=== PATIENT | female | born 1955 | race Caucasian/White ===

== ENCOUNTER → 2017-12-24 | Day surgery (SDC) | payer OTHER ==
[~2017-12-24] MED LIST: ATROPINE SULFATE 1 MG/10 ML SYR IVP ONE; NS 1,000 ML IV ONE
--- NOTE | 2017-12-24 09:55 | CPEKG ---
Heart Rate: 58 RR Interval: 1034 P-R Interval: 184 QRSD Interval: 86 QT Interval: 448 QTC Interval: 441 P [place]: 53 QRS Andrew: 13 T Wave [place]: 21 EKG Severity - NORMAL ECG - EKG Impression: SINUS RHYTHM Electronically Signed By: Farooq Aslhey 24-Dec-2017 13:24:11
== END | disposition home or self-care (01) ==
LOC: FCATH 09:22
PROVIDERS: ATTEND Internal Medicine Interventional Cardiology
DX: R53.83 Other fatigue (principal); I34.0 Nonrheumatic mitral (valve) insufficiency; I48.91 Unspecified atrial fibrillation; R42 Dizziness and giddiness; R06.02 Shortness of breath; Z53.09 Procedure and treatment not carried out because of other contraindication

== ENCOUNTER 2018-02-07 10:00 | Inpatient (IN) | payer OTHER ==
[2018-02-07] MEDS ORDERED: DIAZEPAM 5 MG TAB PO ONE (10:04)
[2018-02-07] MEDS ORDERED: FAMOTIDINE 20 MG TAB PO ONE (10:04)
[2018-02-07] MEDS ORDERED: ASPIRIN EC 325 MG TAB PO ONE (10:04)
[2018-02-07] MEDS ORDERED: diphenhydrAMINE 25 MG CAP PO ONE ×2 (10:04→10:35)
[2018-02-07] MEDS ORDERED: NS 1,000 ML IV ONE (10:04)
--- NOTE | 2018-02-07 10:23 | CPEKG ---
Heart Rate: 57 RR Interval: 1053 P-R Interval: 176 QRSD Interval: 82 QT Interval: 448 QTC Interval: 437 P [place]: 56 QRS [place]: 21 T Wave [place]: 30 EKG Severity - NORMAL ECG - EKG Impression: SINUS RHYTHM Electronically Signed By: Shane Mendez 14-Feb-2018 21:56:25
[2018-02-07] MEDS ORDERED: FAMOTIDINE 20 MG TAB ONE (10:36)
[2018-02-07] MEDS ORDERED: DIAZEPAM 5 MG TAB ONE (10:36)
[2018-02-07 10:41] LABS: PLATELET COUNT 175 10^3/uL (150-400)
[2018-02-07 10:49] LABS: INR 0.99 (0.83-1.16); PROTIME(PATIENT) 13.3 SEC (12.0-15.0)
[2018-02-07] MEDS ORDERED: LIDOCAINE 1% 300 MG/30 ML SDV ONE (11:32)
[2018-02-07] MEDS ORDERED: fentaNYL 100 MCG/2 ML INJ ONE (11:32)
--- NOTE | 2018-02-07 11:32 | PDHPUP ---
History & Physical Update H&P update statement: This history and physical update is based on an assessment of the patient which was completed after admission or registration (within 24 hours), but prior to the surgery/procedure. H&P update: H&P reviewed & patient examined, no change in patient's condition since H&P completed
--- NOTE | 2018-02-07 11:32 | PDPROPOC ---
Sedation Plan of Care Sedation Plan of Care: vital signs stable, mental status noted, patient educated of risks, benefits, alternatives, patient can tolerate sedation ASA Classification: ASA 1 Planned drugs: fentanyl, midazolam Mallampati Score: Class 1 Mallampati Reference Image: Patient passed 3-3-2 rule?: Yes
[2018-02-07] MEDS ORDERED: MIDAZOLAM 2 MG/2 ML VIAL ONE (11:33)
[2018-02-07] MEDS ORDERED: IOPAMIDOL (ISOVUE 370) 100 ML BTL IV ONE (11:33)
[2018-02-07] MEDS ORDERED: HEPARIN 10,000 UNIT/10 ML MDV (1,000 UNIT/ML) ONE (11:33)
[2018-02-07] MEDS ORDERED: VERAPAMIL 5 MG/2 ML VIAL ONE (11:33)
--- NOTE | 2018-02-07 12:55 | PDDXCAT ---
Diagnostic Cath Note - . Date: 02/07/18 Digital Media Designer: Josef Indication: other (Severe mitral regurgitation. Preop for planned mitral valve repair.) - Procedure Access: right wrist - Materials Left Heart Cath size: 4F Left Heart Cath materials: JL3.5, JR4.0, pigtail - Findings-Left Heart Catheterization LM: Angiographically normal. Appropriate bifurcation into the left anterior descending and circumflex. LAD: Angiographically normal. Transapical vessel. 4 small diagonal branches. LCX: Angiographically normal. Non dominant. 3 obtuse marginal branches. RCA: Angiographically normal. Dominant. The PDA and posterolateral branches are noted. EDP: 7 mmHg. LVEF: 60-65%. Wall motion: Normal. Complications: None. Estimated blood loss: <50ml Closure method: TR Band Assessment: Angiographically normal epicardial coronary arteries. History of severe mitral regurgitation with plans for mitral valve repair surgery. Plan: Mitral valve repair.
--- NOTE | 2018-02-07 15:51 | PDMN ---
Medical Necessity Medical necessity: MCG: S290 Cardiac Valve Replacement or Repair, 5 days. Severe mitral regurg, surgery pending for tomorrow, admitted for pre-op prep.
[2018-02-07] MEDS ORDERED: hydrALAZINE 20 MG/ML VIAL IVP PRN (18:24)
[2018-02-07] MEDS ORDERED: CHLORHEXIDINE GLUC HIBICLENS 118 ML BTL TP SCH (21:00)
[2018-02-07] MEDS: SENNOSIDES/DOCUSATE SODIUM TAB PO SCH (21:05)
[2018-02-07] MEDS: LISINOPRIL 40 MG TAB PO SCH (21:06)
[2018-02-07] MEDS: LABETALOL HCL 200 MG TAB PO SCH (21:06)
[2018-02-07] MEDS: MUPIROCIN 2% 22 GM OINT NS SCH (22:57)
[2018-02-08] MEDS ORDERED: MANNITOL 25% 12.5 GM/50 ML VIAL IVP ONE (06:00)
[2018-02-08] MEDS ORDERED: CITRATE DEXTROSE SOLN 500 ML BAG MISC ONE (06:00)
[2018-02-08] MEDS ORDERED: NOREPINEPHRINE BITARTRATE 16 MG in NS 250 ML IV ONE (06:00)
[2018-02-08] MEDS ORDERED: INSULIN REGULAR HUMAN 100 UNIT in NS 100 ML IV ONE (06:00)
[2018-02-08] MEDS ORDERED: AMINOCAPROIC ACID 5 GM/20 ML VIAL IV ONE (06:00)
[2018-02-08] MEDS ORDERED: PHENYLEPHRINE HCL 50 MG in NS 250 ML IV ONE (06:00)
[2018-02-08] MEDS ORDERED: niCARdipine/NACL 200 ML IV ONE (06:00)
[2018-02-08] MEDS ORDERED: SODIUM BICARBONATE 20 MEQ, LIDOCAINE 1% 10 ML in NORMOSOL-R 1,000 ML MISC ONE (06:00)
[2018-02-08] MEDS ORDERED: ceFAZolin 2 GM/DEXTROSE 100 ML IV ONE (06:00)
[2018-02-08] MEDS ORDERED: LR 1,000 ML IV ONE (06:09)
[2018-02-08] MEDS ORDERED: NA BICARBONATE 50 MEQ/50 ML VIAL ONE (06:35)
[2018-02-08] MEDS ORDERED: CALCIUM CHLORIDE 1 GM/10 ML INJ ONE ×2 (06:35→06:37)
[2018-02-08] MEDS ORDERED: MILRINONE/DEXTROSE/100 ML BAG IV ONE (06:35)
[2018-02-08] MEDS ORDERED: PROTAMINE SULFATE 50 MG/5 ML VIAL IVP ONE (06:35)
[2018-02-08] MEDS ORDERED: niCARdipine/NACL/200 ML BAG IV ONE (06:36)
[2018-02-08] MEDS ORDERED: ceFAZolin 1 GM VIAL ONE (06:36)
[2018-02-08] MEDS ORDERED: ADENOSINE 6 MG/2 ML VIAL ONE (06:36)
[2018-02-08] MEDS ORDERED: AMIODARONE HCL 150 MG/3 ML VIAL ONE ×2 (06:36→06:38)
[2018-02-08] MEDS ORDERED: DOPamine/DEXTROSE 400 MG/250 ML BAG IV ONE (06:36)
[2018-02-08] MEDS ORDERED: HEPARIN 10,000 UNIT/10 ML MDV (1,000 UNIT/ML) ONE ×2 (06:36→06:38)
[2018-02-08] MEDS ORDERED: NITROGLYCERIN/D5W 50 MG/250 ML BOTTLE IV ONE (06:37)
[2018-02-08] MEDS ORDERED: ALBUMIN 5% 250 ML BOTTLE IV ONE ×2 (06:37→11:24)
[2018-02-08] MEDS ORDERED: MAGNESIUM SULFATE 1 GM/2 ML VIAL ONE (06:38)
[2018-02-08] MEDS ORDERED: CITRATE DEXTROSE SOLN 500 ML BAG ONE (06:38)
[2018-02-08] MEDS ORDERED: LIDOCAINE 2% 100 MG/5 ML SYR ONE ×2 (06:38→07:30)
[2018-02-08] MEDS ORDERED: methylPREDNISolone SOD SUCC 1 GM/8 ML VIAL ONE (06:39)
[2018-02-08] MEDS: MUPIROCIN 2% 22 GM OINT NS SCH ×2 (06:45→22:00)
--- NOTE | 2018-02-08 06:49 | PDHPUP ---
History & Physical Update H&P update statement: This history and physical update is based on an assessment of the patient which was completed after admission or registration (within 24 hours), but prior to the surgery/procedure. H&P update: H&P reviewed & patient examined, changes noted (Preop imaging neg for obstructive CAD, hemodynamically sig carotid stenosis, or sig dilatation of asc aorta.)
[2018-02-08] MEDS ORDERED: MIDAZOLAM 2 MG/2 ML VIAL IVP ONE (06:55)
--- NOTE | 2018-02-08 06:55 | PDANEPAE ---
ANE History of Present Illness severe MR, GONZALO and PAF ANE Past Medical History - Cardiovascular History Hx Hypertension: Yes Hx Arrhythmias: Yes Hx Chest Pain: No Hx Coronary Artery / Peripheral Vascular Disease: No Hx CHF / Valvular Disease: Yes Hx Palpitations: No Cardiovascular History Comment: severe HTN has been diffcult to control - Pulmonary History Hx COPD: No Hx Asthma/Reactive Airway Disease: No Hx Recent Upper Respiratory Infection: No Hx Oxygen in Use at Home: No Hx Sleep Apnea: Yes Sleep Apnea Screening Result - Last Documented: Positive - Neurologic History Hx Cerebrovascular Accident: No Hx Seizures: No Hx Dementia: No - Endocrine History Hx Diabetes: No - Renal History Hx Renal Disorders: No - Liver History Hx Hepatic Disorders: No - Neurological & Psychiatric Hx Hx Neurological and Psychiatric Disorders: Yes Neurological / Psychiatric History Comment: lower back injury pain to left leg and foot - Cancer History Hx Cancer: No - Congenital Disorder History Hx Congenital Disorders: Yes Congenital History Comment: HTN,stroke - GI History Hx Gastrointestinal Disorders: No - Other Health History Other Health History: none - Chronic Pain History Chronic Pain: Yes (lower back) - Surgical History Prior Surgeries: left patela repair ANE Review of Systems Review of Systems: - Exercise capacity METS (RN): 4 METS ANE Patient History - Allergies Allergies/Adverse Reactions: No Known Allergies Allergy (Verified 02/01/18 11:12) - Home Medications Home medications: home medication list seen and reviewed Home Medications: ALPRAZolam [Xanax 0.25 MG (*)] 0.25 mg PO DAILY PRN 02/01/18 [Last Taken ] Apixaban [Eliquis] 5 mg PO BID 02/01/18 [Last Taken 02/02/18] Hydrochlorothiazide [HCTZ (*)] 12.5 mg PO DAILY 02/01/18 [Last Taken 02/06/18] Labetalol HCl [Trandate 200 mg (*)] 400 mg PO BID 02/01/18 [Last Taken 02/07/18] Lisinopril [Zestril 40 mg (*)] 40 mg PO BID 02/01/18 [Last Taken 02/06/18] Herbals/Supplements -Info Only 1 ea PO DAILY 02/04/18 [Last Taken 02/06/18] Ibuprofen [Motrin (*)] 200 mg PO DAILY PRN 02/04/18 [Last Taken 02/05/18] Labetalol HCl [Trandate 200 mg (*)] 200 mg PO DAILY@12 02/04/18 [Last Taken 11/21] Magnesium Oxide [Magnesium Oxide 400 mg (*)] 400 mg PO DAILY 02/04/18 [Last Taken 02/06/18] Aspirin 325 mg (*) 02/07/18 [Last Taken 02/07/18] - NPO status NPO Since - Liquids (Date): 02/08/18 NPO Since - Liquids (Time): 00:00 NPO Since - Solids (Date): 02/08/18 NPO Since - Solids (Time): 00:00 - Smoking Hx Smoking Status: Never smoked - Family Anes Hx Family Hx Anesthesia Complications: none ANE Labs/Vital Signs - Labs Result Diagrams: 02/07/18 10:20 02/08/18 03:38 - Vital Signs Blood Pressure: 163/84 Heart Rate: 58 Respiratory Rate: 14 O2 Sat (%): 98 Height: 168 cm Weight: 76.2 kg ANE Physical Exam - Airway Mallampati Score: Class 2 Mouth exam: normal dental/mouth exam (states front 2 top teeth are "slightly thinner") - Pulmonary Pulmonary: no respiratory distress - Cardiovascular Cardiovascular: regular rate and rhythym - ASA Status ASA Status: III ANE Anesthesia Plan Anesthesia Plan: general endotracheal anesthesia Lines/Monitors: arterial line, central line, KAYLA
[2018-02-08] MEDS ORDERED: DEXMEDETOMIDINE HCL 400 MCG in NS 100 ML IV SCH (07:00)
[2018-02-08] MEDS ORDERED: REMIFENTANIL HCL 1 MG VIAL ONE (07:29)
[2018-02-08] MEDS ORDERED: fentaNYL 250 MCG/5 ML INJ ONE (07:29)
[2018-02-08] MEDS ORDERED: MIDAZOLAM 2 MG/2 ML VIAL ONE (07:29)
[2018-02-08] MEDS ORDERED: ONDANSETRON 4 MG/2 ML VIAL ONE (07:30)
[2018-02-08] MEDS ORDERED: PROPOFOL/EMULSION 500 MG/50 ML BOTTLE IV ONE (07:30)
[2018-02-08] MEDS ORDERED: ePHEDrine SULFATE 25 MG/5 ML SYR ONE (07:30)
[2018-02-08] MEDS ORDERED: PHENYLEPHRINE HCL 100 MCG/ML SYR ONE (07:30)
[2018-02-08] MEDS ORDERED: DEXAMETHASONE 4 MG/ML VIAL ONE ×2 (07:30)
[2018-02-08] MEDS ORDERED: ROCURONIUM 100 MG/10 ML VIAL ONE (07:30)
[2018-02-08] MEDS ORDERED: SUGAMMADEX SODIUM 200 MG/2 ML VIAL IVP ONE (11:52)
[2018-02-08] MEDS ORDERED: POTASSIUM Cl (KCl) 50 ML IV PRN (12:07)
[2018-02-08] MEDS ORDERED: ACETAMINOPHEN 650 MG SUPP PR PRN (12:07)
[2018-02-08] MEDS ORDERED: PANTOPRAZOLE SODIUM 40 MG VIAL IVP ONE (12:07)
[2018-02-08] MEDS ORDERED: ONDANSETRON DISINTEGRATING 4 MG TAB PO PRN (12:07)
[2018-02-08] MEDS ORDERED: BISACODYL 10 MG SUPP PR PRN (12:07)
[2018-02-08] MEDS ORDERED: MAGNESIUM HYDROXIDE 30 ML UDCUP PO PRN (12:07)
[2018-02-08] MEDS ORDERED: D50W 25 GM/50 ML SYR IVP PRN (12:07)
[2018-02-08] MEDS ORDERED: MEPERIDINE 25 MG/0.5 ML AMP IVP PRN (12:07)
[2018-02-08] MEDS ORDERED: SODIUM CL NASAL 45 ML BTL EACHNARE PRN (12:07)
[2018-02-08] MEDS ORDERED: LACTULOSE 20 GM/30 ML UDCUP PO PRN (12:07)
[2018-02-08] MEDS ORDERED: CEPACOL LOZENGE PO PRN (12:07)
[2018-02-08] MEDS ORDERED: niCARdipine/NACL 200 ML IV SCH (12:30)
[2018-02-08] MEDS ORDERED: INSULIN REGULAR HUMAN 100 UNIT in NS 100 ML IV SCH (12:30)
[2018-02-08] MEDS: KETOROLAC 15 MG/1 ML SDV IVP SCH ×2 (12:52→17:42)
--- NOTE | 2018-02-08 12:59 | ASMTCMCOM ---
CM Note CM Note Notes: Patient is POD #0 septal myectomy, Cannon Maze 4 and MVR. She arrived to the ICU in stable condition. Patient lives independently with her . PT/OT have been ordered. Case Managementw will follow for discharge planning. Date Signed: 02/08/2018 12:58 PM Electronically Signed By:Edie Richardson RN
[2018-02-08] MEDS: LABETALOL HCL 200 MG TAB PO SCH (13:23)
[2018-02-08] MEDS: LISINOPRIL 40 MG TAB PO SCH (13:24)
[2018-02-08] MEDS: SENNOSIDES/DOCUSATE SODIUM TAB PO SCH (13:25)
[2018-02-08] MEDS: NS 1,000 ML IV SCH (13:32)
[2018-02-08] MEDS: HEPARIN 5,000 UNIT/0.5 ML INJ SC SCH ×3 (13:37→20:19)
--- NOTE | 2018-02-08 13:38 | CPEKG ---
Heart Rate: 65 RR Interval: 923 P-R Interval: 180 QRSD Interval: 142 QT Interval: 484 QTC Interval: 504 P [place]: 97 QRS [place]: -31 T Wave [place]: 83 EKG Severity - ABNORMAL ECG - EKG Impression: SINUS RHYTHM EKG Impression: LEFT BUNDLE BRANCH BLOCK Electronically Signed By: Shane Mendez 14-Feb-2018 21:56:12
--- NOTE | 2018-02-08 13:51 | GOP ---
[f rep st] OPERATIVE REPORT DATE OF OPERATION: 02/08/2018 SURGEON: Shane Ruelas DO TRENCH DIGGER HELPER: Ekaterina Ng ANESTHESIA: Jose Mcnally PREOPERATIVE DIAGNOSIS: 1. Severe mitral insufficiency with fibroelastic deficiency. 2. Moderate aortic enlargement. 3. Septal hypertrophy with chordal systolic anterior motion. 4. Persistent atrial fibrillation. POSTOPERATIVE DIAGNOSIS: 1. Severe mitral insufficiency with fibroelastic deficiency. 2. Moderate aortic enlargement. 3. Septal hypertrophy with chordal systolic anterior motion. 4. Persistent atrial fibrillation. PROCEDURE PERFORMED: 1. Mitral valve replacement with chordal sparing utilizing a 27 Inspiris aortic valve placed in the mitral position. 2. Aortoplasty with reduction by 1.5 cm to 2.8 cm aorta. 3. Cannon Maze IV with testing utilizing radiofrequency and cryoablation. 4. Atrial clip of the left atrial appendage. 5. Septal myectomy, extended, with removal of posterolateral papillary muscle. FINDINGS: The patient presented with symptomatic mitral regurgitation and outflow tract obstruction. She was noted to have severe concentric LVH due to longstanding uncontrolled hypertension. Her pre operative CT revealed a 4 cm ascending aorta. She had a normal trileaflet aortic valve. Echo reveal ed a mid septal hypertroph with some chordal JOHN. She also had what appeared to be a fibroelastic va lve with rupture of the chords to P2 with severe mitral insufficiency. Coronaries were normal. DESCRIPTION OF PROCEDURE: She was consented for surgery. Brought to the operating room, intubated. Monitoring lines were placed. Transesophageal echo confirmed preoperative findings. It should be n oted she had a markedly thickened left ventricle with concentric LVH, but evidence of HOCM as well an d chordal JOHN. Initial testing for entrance and exit block confirmed no evidence of block on both si anne-marie. We then arrested the heart, encircled the right pulmonary veins, and performed multiple ablatio ns with 3 overlapping lines with less than 5 seconds at the completion of each ablation. We then per formed the same on the left pulmonary veins. We then excised the tip of the left atrial appendage wh ich was free of thrombus and placed a radiofrequency clamp across the previous antrum lesion from the tip of the left atrial appendage across the Coumadin ridge. Multiple ablations were performed until less than 5 seconds. We then placed a 35 mm atrial clip across the base of the appendage then marke d the coronary sinus at the terminus of the circumflex and right vessels. I then performed an aortot tracy in a vertical fashion rather than transverse because of her moderately enlarged aorta. She did n ot meet criteria for replacement, particularly in the face of a trileaflet valve. The aorta was rela tively normal in thickness and texture, but I felt it important to at least reduce the size of it. W e did a long aortotomy, exposed the bulging myocardial septum and did a trapezoid resection in the pr oximal portion, extending it to an extended myectomy to the base of the papillary muscle and the whol e wall of the septum. Close to 1000 g of tissue was removed. It was subsequently irrigated, and any shaggy material was debrided. This was performed with 11-blade, scissors, and a rongeur. We then c losed the aortotomy, reducing the size approximately 1.5 cm. It then measured about 28 mm at complet ion with a horizontal mattress and then a continuous running suture. I then proceeded with exposing the left atrium through the right superior pulmonary vein. Atriotomy was performed, extending it jeremi ost all the way to the left pulmonary vein and both inferiorly and superiorly on the roof and floor l esions, markedly transecting the atrium for the majority of the way. We then did radiofrequency comp letion of the floor and roof lesions with the short 1 cm that was left until they were less than 5 se conds. We then performed an isthmus lesion utilizing radiofrequency for 2 minutes and overlapped it on the coronary sinus lesion which was done for 3 minutes with cryoablation. I then closed the atriu m with a continuous running 4-0 Prolene suture partially and then placed a retractor and exposed the mitral valve. It was a very thin-walled friable vessel. There was obvious chordal rupture to a very small P2. I began to do chordal replacement with a 5-0 Meredith-Michael; however, gentle retraction on the anterior leaflet tore chordae to that as well. They were very thin, friable and somewhat sclerotic, and for that reason I did not think complex reconstruction of this very small valve would lead to a g ood long-term result. There was very little tissue for coaptation, and for that reason I detached th e anterior leaflet, I resected part of the posterior papillary muscle, leaving the chordae intact, an d detaching the anterior leaflet and taking it down to 3 and 9 o'clock and incorporating it into a 27 mm Inspiris aortic valve with thoughts that this had better tissue preparation than available with m itral valve and that it would also afford future balloon valvuloplasty with a [id number] placemen t. This was secured without difficulty with horizontal mattress sutures. The left atrium was then c ompletely closed. The patient was placed in Trendelenburg. The LV apex was de-aired. We then remov ed the cross-clamp with the aortic vent on and in Trendelenburg. We then performed the right-sided l esions utilizing the vertical atriotomy. The superior and inferior vena cava lines as well as the fr ee wall lesion were performed with radiofrequency to less than 5 seconds, and then we did a cryoablat ion at 2 o'clock across the tricuspid isthmus into the right ventricle with blood flow in the right c oronary artery. Atriotomy was closed. We then performed testing on both sides with complete evidenc e of block, both entrance and exit on both sides. The patient was then de-aired, weaned from bypass. The valve appeared to function perfectly. There was no aortic insufficiency. The patient was in s inus rhythm, and there was evidence of marked septal reduction with no evidence of outflow tract obst ruction. Heparin was reversed with protamine. The cannula was then removed and oversewn. 2 ventric ular pacing wires, 2 mediastinal drains were placed. The thymic fat and pericardium were closed. Th e chest was closed in standard fashion. The patient was returned to ICU in stable condition. /[id number]/MODL
[2018-02-08] MEDS ORDERED: NOREPINEPHRINE BITARTRATE 16 MG in NS 250 ML IV SCH (14:45)
[2018-02-08] MEDS ORDERED: ALBUMIN 5% 250 ML IV ONE (15:00)
[2018-02-08] MEDS: ceFAZolin 2 GM/DEXTROSE 100 ML IV SCH ×2 (15:24→21:10)
[2018-02-08] MEDS: ALBUMIN 5% 250 ML IV PRN ×2 (17:16→21:07)
--- NOTE | 2018-02-08 18:12 | POSTANESTH ---
Post Anesthetic Evaluation Cardiovascular Status: Normal, Stable (levophed at 1, very stable), Tx Hyper/ Hypo-tension Respiratory Status: Normal, Stable, Tx Decrease in SpO2 (O2 at 2L by NC) Level of Consciousness/Mental Status: Can Participate in Eval, Mildly Sleepy, Arousable Pain Control: Adequate, Prn Tx Ordered Nausea/Vomiting Control: Adequate, Prn Tx Ordered Complications Possibly Related to Anesthesia: None Noted
[2018-02-08] MEDS: ONDANSETRON 4 MG/2 ML VIAL IVP PRN (21:10)
[2018-02-08] MEDS: METOCLOPRAMIDE 10 MG/2 ML VIAL IVP PRN (21:10)
[2018-02-08] MEDS: fentaNYL 100 MCG/2 ML INJ IVP PRN (21:10)
[2018-02-09] MEDS: KETOROLAC 15 MG/1 ML SDV IVP SCH ×4 (00:13→17:58)
[2018-02-09] MEDS: HYDROCODONE/APAP 5/325 TAB PO PRN ×3 (04:50→20:07)
[2018-02-09] MEDS: fentaNYL 100 MCG/2 ML INJ IVP PRN ×2 (04:50→11:44)
[2018-02-09] MEDS: ceFAZolin 2 GM/DEXTROSE 100 ML IV SCH ×3 (05:04→22:17)
[2018-02-09 06:15] LABS: PLATELET COUNT 68 10^3/uL (150-400)
[2018-02-09] MEDS: HEPARIN 5,000 UNIT/0.5 ML INJ SC SCH ×4 (06:16→21:26)
[2018-02-09] MEDS ORDERED: ALBUMIN 5% 250 ML BOTTLE IV ONE ×2 (06:36→08:30)
--- NOTE | 2018-02-09 07:11 | SOAPPROG ---
IBAN Progress Note Assessment/Plan: POD #1: Mitral valve replacement with #27 Mary Noa aortic valve, reduction aortoplasty, Cannon-Maze IV, extended septal myectomy Severe MR s/p mitral valve replacement - Coumadin with INR goal 2-3 for AC as per Cannon-Maze IV as well as adjunctive baby ASA Ascending aortic aneurysm s/p reduction aortoplasty - Stable Long-standing paroxysmal atrial fibrillation s/p Cannon-Maze IV - Post-op accelerated JR vs SR - Coumadin for AC as per protocol HOCM with JOHN s/p extended septal myectomy - Stable Acute blood loss anemia - No transfusions needed Subjective: Denies pain/SOB. Objective: Vital Signs Temp Pulse Resp BP Pulse Ox 36.7 C 76 14 110/54 L 92 02/09/18 06:00 02/09/18 06:00 02/09/18 06:00 02/09/18 06:00 02/09/18 06:00 Laboratory Results 02/09/18 04:48 02/09/18 04:48 02/08/18 02/09/18 02/10/18 05:59 05:59 05:59 Intake Total 250 3775.7 Output Total 1465 Balance 250 2310.7 PT 13.3 SEC (12.0-15.0) 02/07/18 10:20 INR 0.99 (0.83-1.16) 02/07/18 10:20 Physical Exam - Physical Exam General Appearance: WD/WN, alert, no apparent distress EENT: No scleral icterus (R), No scleral icterus (L) Neck: normal inspection Respiratory: No respiratory distress Cardiac/Chest: regular rate, rhythm, other (?accelerated JR) Abdomen: non-tender, soft, No distended Skin: normal color, warm/dry Extremities: No pedal edema Neuro/Psych: no motor/sensory deficits, alert, normal mood/affect, oriented x 3 ICD10 Worksheet Patient Problems: Problems Problem Status Onset Acute blood loss anemia Acute S/P Maze operation for atrial fibrillation Acute ~02/08/18 S/P aorta repair Acute ~02/08/18 S/P mitral valve replacement with bioprosthetic valve Acute ~02/08/18 S/P ventricular septal myectomy Acute ~02/08/18 Ascending aorta enlargement Chronic Asymmetric septal hypertrophy Chronic Hypertensive cardiomyopathy Chronic PAF (paroxysmal atrial fibrillation) Chronic Severe mitral regurgitation Chronic
[2018-02-09] MEDS ORDERED: ALBUMIN 5% 250 ML IV ONE (09:00)
[2018-02-09] MEDS: MUPIROCIN 2% 22 GM OINT NS SCH ×2 (09:00→22:00)
[2018-02-09] MEDS: ONDANSETRON 4 MG/2 ML VIAL IVP PRN (09:11)
[2018-02-09] MEDS ORDERED: CALCIUM CHLORIDE 1 GM/10 ML INJ IVP ONE (10:15)
[2018-02-09] MEDS: METOCLOPRAMIDE 10 MG/2 ML VIAL IVP PRN (10:23)
[2018-02-09] MEDS ORDERED: FUROSEMIDE 20 MG/2 ML VIAL IVP ONE (11:00)
[2018-02-09] MEDS ORDERED: NA BICARBONATE 50 MEQ/50 ML VIAL ONE (11:09)
[2018-02-09] MEDS ORDERED: NA BICARBONATE 50 MEQ/50 ML VIAL IV ONE ×2 (11:45→14:00)
[2018-02-09] MEDS: NS 1,000 ML IV SCH (12:18)
[2018-02-09] MEDS: ASPIRIN 81 MG CHEWABLE TAB PO SCH (13:35)
[2018-02-09] MEDS: PANTOPRAZOLE SODIUM 40 MG TAB PO SCH (13:35)
--- NOTE | 2018-02-09 13:47 | GCON ---
[f rep st] CONSULTATION CRITICAL CARE CONSULT DATE OF CONSULTATION: 02/09/2018 HISTORY OF PRESENT ILLNESS: This patient is a 62-year-old female with a history of severe mitral reg urgitation and atrial fibrillation as well as hypertrophic obstructive cardiomyopathy. She was havin g symptoms of dizziness and was evaluated by Dr. Ruelas, and underwent a mitral valve repair, aortopla sty, and Cannon maze procedure with myectomy yesterday, without complication. She was extubated and bro ught to the intensive care unit with chest tubes in place, backup pacer in place, with mild hypotensi on requiring very low-dose Levophed. She did well overnight and then this morning had 2 episodes of very brief hypotension. The 1st episode occurred while she was dangling at the side of the bed. Thi s resolved fairly quickly without intervention. A 2nd episode occurred while she was lying in bed wi thout a precipitating event. I was emergently called to the room, where her blood pressure was in th e 50s. She was getting a blood transfusion at the time. Nurses were applying pressure to those bags . Symptomatically, the patient said she felt lightheaded and dizzy. She got an injection of calcium chloride and felt that there was a burning sensation throughout her body. At that time, she was in Trendelenburg position. She complained of nausea and was near emesis until I sat her up, which relie margi that symptom. She was on Levophed at the time; the Levophed was increased to as high as 15 mcg/k g per minute, and this worked quite well, and within about 10 minutes all her hemodynamics returned t o normal. The backup pacer was turned on, also, during this time, but was not adequate enough to madeline ntain an adequate blood pressure. She did have some chest pain, but this seemed to be better than ye day and was incisional in nature. She had only transient shortness of breath but no cough and no hemoptysis. There was no excess output from her chest tubes and the whole event resolved within abo ut 10 or 15 minutes. REVIEW OF SYSTEMS: Otherwise negative. PAST MEDICAL HISTORY: Includes: 1. Atrial fibrillation. 2. Hypertension. 3. Mitral regurgitation. 4. Sleep apnea. 5. Pulmonary hypertension. 6. Hypertrophic obstructive cardiomyopathy. PAST SURGICAL HISTORY: None. SOCIAL HISTORY: She is a nonsmoker. No alcohol or IV drug use. FAMILY HISTORY: Noncontributory. MEDICATIONS: At this time include Tylenol, [place], Xanax, aspirin, Dulcolax, Ancef, fentanyl, heparin , insulin, Toradol, Trandate, Zestril, Milk of Magnesia, Reglan, morphine, Levophed, Zofran, Protonix , MiraLAX, Senokot, normal saline. PHYSICAL EXAMINATION: GENERAL: At the time of my evaluation when her blood pressure was quite low, she was awake, but somewhat somnolent and did answer questions appropriately. She was non diaphoreti c. HEENT: Pupils equally round and reactive to light, nonicteric and not injected. Mucous membrane s are moist, without erythema or exudate. NECK: Supple without adenopathy or jugular vein distentio n. LUNGS: Breath sounds were diminished but clear to auscultation bilaterally without wheezes, rubs , or rales. HEART: Regular rate and rhythm without obvious murmur. SKIN: Incision was clean and d ry without evidence of infection or bleeding. ABDOMEN: Soft, nontender, nondistended, without hepat osplenomegaly. EXTREMITIES: Showed no clubbing, cyanosis, or edema. NEUROLOGIC: Nonfocal, includi ng cranial nerves, deep tendon reflexes. OBJECTIVE DATA: Includes a white count of 10 this morning, hematocrit is 24, and blood was transfusi ng, platelets of 68. Basic metabolic panel was unremarkable. Glucose was 104. ASSESSMENT AND PLAN: 1. Hypotension. These are probably vagal episodes, very transient in nature, and she responded well with little to no intervention during this time. I do not see evidence of acute coronary syndrome a nd this would be unlikely, since she did have a recent cardiac cath that was completely clean. There is no evidence of sepsis or no evidence of excessive bleeding. I do not believe the anemia was caus e of this episode since it was relieved without much difference. We will continue to follow her seri al H and H as well as her hemodynamics, and titrate off her Levophed as tolerated. 2. Hypoxemia. This is related to atelectasis and her chest tubes, which should be removed in the ne ar future. A total of 35 minutes critical care time was involved in this patient. /[id number]/MODL
[2018-02-09] MEDS ORDERED: FUROSEMIDE 100 MG/10 ML VIAL IV ONE (16:00)
[2018-02-09] MEDS: ACETAMINOPHEN 325 MG TAB PO PRN (20:07)
[2018-02-09] MEDS: ALPRAZolam 0.25 MG TAB PO PRN (22:17)
[2018-02-10] MEDS: HYDROCODONE/APAP 5/325 TAB PO PRN ×2 (00:55→04:36)
[2018-02-10] MEDS: ACETAMINOPHEN 325 MG TAB PO PRN ×5 (00:55→11:12)
[2018-02-10 05:01] LABS: INR 1.22 (0.83-1.16); PROTIME(PATIENT) 15.6 SEC (12.0-15.0)
[2018-02-10] MEDS: HEPARIN 5,000 UNIT/0.5 ML INJ SC SCH (05:26)
--- NOTE | 2018-02-10 06:25 | SOAPPROG ---
[facility] Progress Note Assessment/Plan: POD #2: Mitral valve replacement with #27 Mary Noa aortic valve, reduction aortoplasty, Cannon-Maze IV, extended septal myectomy Severe MR s/p mitral valve replacement - Coumadin with INR goal 2-3 for AC as per Cannon-Maze IV as well as adjunctive baby ASA Ascending aortic aneurysm s/p reduction aortoplasty - Stable Long-standing paroxysmal atrial fibrillation s/p Cannon-Maze IV - Post-op SR - Coumadin for AC as per protocol HOCM with JOHN s/p extended septal myectomy - BB as tolerated Acute blood loss anemia - Stable s/p 2U PRBC AUDRA, secondary to hypotension/pre-renal - Monitor - Avoid nephrotoxins Fluid overload - Plan for Lasix tomorrow Subjective: Denies pain/SOB. Objective: Vital Signs Temp Pulse Resp BP Pulse Ox 37.6 C 77 21 H 127/57 H 94 02/10/18 04:00 02/10/18 06:00 02/10/18 06:00 02/10/18 06:00 02/10/18 06:00 Laboratory Results 02/10/18 04:35 02/10/18 04:35 02/09/18 02/10/18 02/11/18 05:59 05:59 05:59 Intake Total 3775.7 4718.4 Output Total 1465 1075 Balance 2310.7 3643.4 PT 15.6 SEC (12.0-15.0) H 02/10/18 04:35 INR 1.22 (0.83-1.16) H 02/10/18 04:35 Physical Exam - Physical Exam General Appearance: WD/WN, alert, no apparent distress EENT: No scleral icterus (R), No scleral icterus (L) Neck: normal inspection Respiratory: No respiratory distress Cardiac/Chest: regular rate, rhythm Abdomen: non-tender, soft, No distended Skin: normal color, warm/dry Extremities: pedal edema Neuro/Psych: no motor/sensory deficits, alert, normal mood/affect, oriented x 3 ICD10 Worksheet Patient Problems: Problems Problem Status Onset Acute blood loss anemia Acute S/P Maze operation for atrial fibrillation Acute ~02/08/18 S/P aorta repair Acute ~02/08/18 S/P mitral valve replacement with bioprosthetic valve Acute ~02/08/18 S/P ventricular septal myectomy Acute ~02/08/18 Ascending aorta enlargement Chronic Asymmetric septal hypertrophy Chronic Hypertensive cardiomyopathy Chronic PAF (paroxysmal atrial fibrillation) Chronic Severe mitral regurgitation Chronic
[2018-02-10] MEDS: ASPIRIN 81 MG CHEWABLE TAB PO SCH (09:07)
[2018-02-10] MEDS: MUPIROCIN 2% 22 GM OINT NS SCH (09:07)
[2018-02-10] MEDS: PANTOPRAZOLE SODIUM 40 MG TAB PO SCH (09:07)
[2018-02-10] MEDS: SENNOSIDES/DOCUSATE SODIUM TAB PO SCH ×2 (09:09→19:48)
--- NOTE | 2018-02-10 09:30 | PDINTPN ---
[employer] Manager Progress Note Assessment/Plan: 62 F with severe MR and ascending aortic aeurysm s/p MVR, aortoplasty, Cannon/Maze procedure and SALINAS ligation. Postop course complicated by [id number] vagal events with symptomatic hypotension, bradycardia and mental status changes. Both were 5-10 minutes and resolved without intervention. * s/p cardiac surgery- stable. Ambulating in hallss * Hypotension- resolved. Likely vagal * hypoxemia- minimal requirement and CXR without significant pathology. Cont pulmonary toilet. * Dispo per Dr. Ruelas Subjective: feels well- no further vagal events. Pressors off, ambulating in patiño Objective: Vital Signs Temp Pulse Resp BP Pulse Ox 37.7 C 80 18 113/57 L 93 02/10/18 08:00 02/10/18 08:00 02/10/18 08:00 02/10/18 08:00 02/10/18 08:00 Laboratory Results 02/10/18 04:35 02/10/18 07:55 02/09/18 02/10/18 02/11/18 05:59 05:59 05:59 Intake Total 3775.7 4718.4 Output Total 1465 1075 Balance 2310.7 3643.4 PT 15.6 SEC (12.0-15.0) H 02/10/18 04:35 INR 1.22 (0.83-1.16) H 02/10/18 04:35 Physical Exam - Physical Exam General Appearance: WD/WN, alert, no apparent distress EENT: PERRL/EOMI Neck: supple Respiratory: lungs clear, normal breath sounds, No respiratory distress, No accessory muscle use Cardiac/Chest: regular rate, rhythm, No edema Abdomen: non-tender, soft, No distended Skin: normal color, warm/dry, No cyanosis Lymphatic: no adenopathy Extremities: No pedal edema Neuro/Psych: alert, normal mood/affect, oriented x 3 ICD10 Worksheet Patient Problems: Problems Problem Status Onset Acute blood loss anemia Acute S/P Maze operation for atrial fibrillation Acute ~02/08/18 S/P aorta repair Acute ~02/08/18 S/P mitral valve replacement with bioprosthetic valve Acute ~02/08/18 S/P ventricular septal myectomy Acute ~02/08/18 Ascending aorta enlargement Chronic Asymmetric septal hypertrophy Chronic Hypertensive cardiomyopathy Chronic PAF (paroxysmal atrial fibrillation) Chronic Severe mitral regurgitation Chronic
[2018-02-10] MEDS ORDERED: traMADol 50 MG TAB PO PRN (12:25)
[2018-02-10] MEDS: OXYCODONE/APAP 5/325 TAB PO PRN ×2 (15:46→19:47)
[2018-02-10] MEDS ORDERED: WARFARIN SODIUM 2.5 MG TAB PO ONE (16:00)
[2018-02-10] MEDS: traMADol 50 MG TAB PO PRN (21:26)
[2018-02-10] MEDS: ALPRAZolam 0.25 MG TAB PO PRN (23:19)
[2018-02-11] MEDS: OXYCODONE/APAP 5/325 TAB PO PRN ×2 (04:06→20:31)
[2018-02-11 04:41] LABS: INR 1.36 (0.83-1.16); PROTIME(PATIENT) 16.9 SEC (12.0-15.0)
--- NOTE | 2018-02-11 07:01 | SOAPPROG ---
IBAN Progress Note Assessment/Plan: POD #3: Mitral valve replacement with #27 Mary Jeffers aortic valve, reduction aortoplasty, Cannon-Maze IV, extended septal myectomy Severe MR s/p mitral valve replacement - Coumadin with INR goal 2-3 for AC as per Cannon-Maze IV as well as adjunctive baby ASA Ascending aortic aneurysm s/p reduction aortoplasty - Stable Long-standing paroxysmal atrial fibrillation s/p Cannon-Maze IV - Post-op SR - Coumadin for AC as per protocol HOCM with JOHN s/p extended septal myectomy - BB as tolerated Acute blood loss anemia - Stable s/p 2U PRBC AUDRA, secondary to hypotension/pre-renal - Monitor - Avoid nephrotoxins Fluid overload - Well-tolerated - Lasix when appropriate (small LV cavity) Subjective: Happy to be getting tubes out. Denies SOB. Objective: Vital Signs Temp Pulse Resp BP Pulse Ox 36.8 C 85 15 165/90 H 97 02/11/18 04:00 02/11/18 04:00 02/11/18 04:00 02/11/18 04:00 02/11/18 04:00 Laboratory Results 02/11/18 04:16 02/11/18 04:16 02/10/18 02/11/18 02/12/18 05:59 05:59 05:59 Intake Total 4718.4 1390 Output Total 1075 320 Balance 3643.4 1070 PT 16.9 SEC (12.0-15.0) H 02/11/18 04:16 INR 1.36 (0.83-1.16) H 02/11/18 04:16 Physical Exam - Physical Exam General Appearance: WD/WN, alert, no apparent distress EENT: No scleral icterus (R), No scleral icterus (L) Neck: normal inspection Respiratory: No respiratory distress Cardiac/Chest: regular rate, rhythm Abdomen: non-tender, soft, No distended Skin: normal color, warm/dry Extremities: pedal edema Neuro/Psych: no motor/sensory deficits, alert, normal mood/affect, oriented x 3 ICD10 Worksheet Patient Problems: Problems Problem Status Onset Acute blood loss anemia Acute S/P Maze operation for atrial fibrillation Acute ~02/08/18 S/P aorta repair Acute ~02/08/18 S/P mitral valve replacement with bioprosthetic valve Acute ~02/08/18 S/P ventricular septal myectomy Acute ~02/08/18 Ascending aorta enlargement Chronic Asymmetric septal hypertrophy Chronic Hypertensive cardiomyopathy Chronic PAF (paroxysmal atrial fibrillation) Chronic Severe mitral regurgitation Chronic
[2018-02-11] MEDS: ASPIRIN 81 MG CHEWABLE TAB PO SCH (09:14)
[2018-02-11] MEDS: traMADol 50 MG TAB PO PRN ×2 (09:14→15:16)
[2018-02-11] MEDS: SENNOSIDES/DOCUSATE SODIUM TAB PO SCH ×2 (09:14→20:31)
[2018-02-11] MEDS: PANTOPRAZOLE SODIUM 40 MG TAB PO SCH (09:14)
[2018-02-11] MEDS ORDERED: METOPROLOL TARTRATE 25 MG TAB PO SCH (10:00)
[2018-02-11] MEDS ORDERED: FUROSEMIDE 40 MG TAB PO SCH (10:00)
[2018-02-11] MEDS: POTASSIUM CL 20 MEQ TAB PO SCH (10:46)
[2018-02-11] MEDS ORDERED: WARFARIN SODIUM 2.5 MG TAB PO ONE (16:00)
--- NOTE | 2018-02-11 16:14 | ASMTCMCOM ---
CM Note CM Note Notes: PT recommending HC stand by assist w/walker; OT=Hm. She has HMO [employer]. Lives with . Transferred to PCU. Date Signed: 02/11/2018 04:13 PM Electronically Signed By:June Osman LCSW
[2018-02-11] MEDS ORDERED: METOPROLOL TARTRATE 50 MG TAB PO ONE (16:45)
[2018-02-11] MEDS ORDERED: POTASSIUM CL 20 MEQ TAB PO ONE (21:28)
[2018-02-11] MEDS ORDERED: LISINOPRIL 20 MG TAB PO SCH (21:30)
[2018-02-11] MEDS ORDERED: hydrALAZINE 10 MG TAB PO PRN (22:43)
[2018-02-12] MEDS: ALPRAZolam 0.25 MG TAB PO PRN (04:31)
[2018-02-12 05:11] LABS: INR 2.32 (0.83-1.16); PROTIME(PATIENT) 25.5 SEC (12.0-15.0)
[2018-02-12] MEDS ORDERED: FUROSEMIDE 40 MG/4 ML VIAL IVP ONE (07:47)
[2018-02-12] MEDS: SENNOSIDES/DOCUSATE SODIUM TAB PO SCH (08:20)
[2018-02-12] MEDS: PANTOPRAZOLE SODIUM 40 MG TAB PO SCH (08:20)
[2018-02-12] MEDS: LISINOPRIL 20 MG TAB PO SCH ×2 (08:21→20:25)
[2018-02-12] MEDS: POTASSIUM CL 20 MEQ TAB PO SCH (08:21)
[2018-02-12] MEDS: LABETALOL HCL 200 MG TAB PO SCH ×2 (08:21→20:26)
[2018-02-12] MEDS: ASPIRIN 81 MG CHEWABLE TAB PO SCH (08:22)
--- NOTE | 2018-02-12 08:44 | SOAPPROG ---
SOAP Progress Note Assessment/Plan: Assessment: POD#4 MVR with #27 Mary Noa aortic valve, extended septal myectomy, reduction aortoplasty, Cannon-Maze IV Severe MR s/p tissue MVR - Antithrombotic prophylaxis as per Maze. Adjunctive baby ASA until INR stable in therapeutic range. Ascending aortic aneurysm s/p reduction aortoplasty - BP control preferentially with BB. Long-standing paroxysmal atrial fibrillation s/p Cannon-Maze IV - Postop rhythm sinus. - Antithrombotic prophylaxis with Coumadin, target INR 2-3, duration as per protocol. HOCM with JOHN s/p extended septal myectomy - BB as tolerated Acute expected blood loss anemia with thrombocytopenia - Stable s/p 2U PRBC - Platelet count appears to be rebounding. Precautionary HIT pending. AUDRA, pre-renal secondary to hypotension - Resolved with liberalized BP - Avoid nephrotoxins Fluid overload - Well-tolerated - Lasix when appropriate (small LV cavity) Plan: Intensify diuresis. Switch metoprolol back to home regimen of labetalol 400mg BID. Resume lisinopril with conservative hold parameters. No coumadin today. Clip Vwires later today or tomorrow. Baseline postop echo. Increase activity as tolerated. Dispo - Home without services next 2-3 days. 02/12/18 08:39 Subjective: Tired after busy morning. Objective: Vital Signs Temp Pulse Resp BP Pulse Ox 37.1 C 90 14 169/101 H 95 02/12/18 07:53 02/12/18 07:53 02/12/18 07:53 02/12/18 07:53 02/12/18 07:53 Laboratory Results 02/12/18 04:46 02/12/18 04:46 02/11/18 02/12/18 02/13/18 05:59 05:59 05:59 Intake Total 1390 1150 Output Total 320 1150 Balance 1070 0 PT 25.5 SEC (12.0-15.0) H 02/12/18 04:46 INR 2.32 (0.83-1.16) H 02/12/18 04:46 Physical Exam - Physical Exam General Appearance: alert, no apparent distress Respiratory: lungs clear (grossly) Cardiac/Chest: regular rate, rhythm, other (CT dressing CDI. Vwires intact.) Abdomen: non-tender, soft Skin: warm/dry Extremities: swelling (trace) ICD10 Worksheet Patient Problems: Problems Problem Status Onset Acute blood loss anemia Acute S/P Maze operation for atrial fibrillation Acute ~02/08/18 S/P aorta repair Acute ~02/08/18 S/P mitral valve replacement with bioprosthetic valve Acute ~02/08/18 S/P ventricular septal myectomy Acute ~02/08/18 Ascending aorta enlargement Chronic Asymmetric septal hypertrophy Chronic Hypertensive cardiomyopathy Chronic PAF (paroxysmal atrial fibrillation) Chronic Severe mitral regurgitation Chronic
[2018-02-12] MEDS ORDERED: METOPROLOL TARTRATE 50 MG TAB PO SCH (09:00)
[2018-02-12] MEDS: ACETAMINOPHEN 325 MG TAB PO PRN (12:09)
--- NOTE | 2018-02-12 17:29 | ECHO ---
[email or web address] [address] [address] Main: [phone] Fax: Transthoracic Echocardiogram Name: JACKIE MENA MR#: [id number] Study Date: 02/12/2018 Study Time: 09:46 AM Date of : 1955 Age: 62 year(s) Height: 167.6 cm (66 in.) Weight: 85.73 kg (189 lb.) BSA: 1.95 m2 Gender: Female Examination: Echo Indication: Mitral Valve Regurgitation Image Quality: Contrast: Requested by: Sergey Jules BP: / Heart Rate: Rhythm: Indication: Mitral Valve Regurgitation Procedure Staff Financial Services Associate: Rodrigo Bella RDCS Reading Physician: Josias Dubon MD Requesting Provider: Conclusions: Normal global systolic LV function. The ejection fraction is estimated to be 60-65 %. Septal wall motion consistent with post septal myectomy procedure.. Normal RV function. The right atrium is normal in size. The mitral valve prosthesis exhibits normal function. There is a #27 inspiris Ao valve placed in the mitral valve position.. No pericardial effusion. There is a moderate to large pleural effusion.. Measurements: Chambers Valvular Assessment AV/MV Valvular Assessment TV/PV Normal Normal Normal Name Value Range Name Value Range Name Value Range Ao Nellie (MM): 2.8 cm (2.2 cm-3.7 AV Vmax: 2.10 m/s (1 m/s-1.7 TR Vmax: 2.67 mm/s ( - ) cm) m/s) TR PGmax: 29 mmHg ( - ) IVSd (2D): 1.1 cm (0.6 cm-1.1 AV maxP mmHg ( - ) syst. PAP: 34 mmHg ( - ) cm) AV meanP mmHg ( - ) PV Vmax: 1.05 m/s (0.6 m/s-0.9 LVDd (2D): 3.7 cm (3.9 cm-5.3 SALAS (VTI): 2.7 cm ( - ) m/s) cm) MV E Vmax: 1.36 m/s ( - ) PV PGmax: 4 mmHg ( - ) LVDs (2D): 2.5 cm (2.1 cm-4 MV A Vmax: 0.80 m/s ( - ) cm) MV E/A: 1.70 ( - ) LVPWd (2D): 1.0 cm ( - ) MV meanP mmHg ( - ) LVOTd 2.0 cm 2.0 cm mm MVA (Vmax): 2.9 m/s ( - ) LVEF (2D): 61 (>=54 %) EF Range: 60-65 % Continued Measurements: Chambers Valvular Assessment AV/MV Valvular Assessment TV/PV Patient: JACKIE MENA Study Date: 02/12/2018 Page 1 of 2 09:46 AM Name Value Name Value Name Value LADs Lon.0 cm MV VTI: 35.70 cm CVP (est.): 5 mmHg LA Area: 18.8 cm2 LA Volume: 49 ml LA Volume Index: 25.1 ml/m2 Findings: Left Ventricle: Normal size left ventricle. Normal global systolic LV function. The ejection fraction is estimated to be 60-65 %. Septal wall motion consistent with post septal myectomy procedure.. Right Ventricle: Normal size right ventricle. Normal RV function. Left Atrium: The left atrium is normal in size. Right Atrium: The right atrium is normal in size. Mitral Valve: The mitral valve prosthesis exhibits normal function. The prosthetic mitral valve is normal. No prosthesis stenosis. No MV prosthesis regurgitation. There is a #27 inspiris Ao valve placed in the mitral valve position.. Aortic Valve: The aortic valve is normal in appearance and function. There is no aortic valve regurgitation. Tricuspid Valve: The tricuspid valve is normal in appearance and function. Trivial tricuspid valve regurgitation. Pulmonic Valve: The pulmonic valve is normal in appearance and function. Aorta: The aorta is normal. Pericardium: No pericardial effusion. There is a moderate to large pleural effusion.. Exam Comments: MVR with chordal sparing utilizing a #27 Inspiris Ao valve placed in the mitral valve position. Septal myectomy. (No Signature Object) Patient: JACKIE MENA Study Date: 02/12/2018 Page 2 of 2 09:46 AM [id number]
[2018-02-12] MEDS: POLYETHYLENE GLYCOL 3350 17 GM PKT PO PRN (18:05)
[2018-02-12] MEDS: OXYCODONE/APAP 5/325 TAB PO PRN (21:45)
[2018-02-13 06:31] LABS: INR 1.77 (0.83-1.16); PROTIME(PATIENT) 20.7 SEC (12.0-15.0)
--- NOTE | 2018-02-13 07:05 | SOAPPROG ---
SOAP Progress Note Assessment/Plan: Assessment: POD#5 MVR with #27 Inspiris Resilia aortic valve, extended septal myectomy, reduction aortoplasty, Cannon-Maze IV Severe MR s/p tissue MVR - Antithrombotic prophylaxis as per Maze. Adjunctive baby ASA until INR stable in therapeutic range. Ascending aortic aneurysm s/p reduction aortoplasty - BP control preferentially with BB. Long-standing paroxysmal atrial fibrillation s/p Cannon-Maze IV - Postop rhythm sinus. - Antithrombotic prophylaxis with Coumadin, target INR 2-3, duration as per protocol. HOCM with JOHN s/p extended septal myectomy - BB as tolerated Acute expected blood loss anemia with thrombocytopenia - Stable s/p 2U PRBC - Platelet count rebounding. Precautionary HIT negative. AUDRA, pre-renal secondary to hypotension - Resolved with liberalized BP - Avoid nephrotoxins Fluid overload - Well-tolerated - Active diuresis in progress Plan: Ultrasound guided rt thoracentesis. Cont IV lasix 40 mg daily. Cont labetalol 400mg BID. Decr lisinopril to 10 mg BID with conservative hold parameters. Resume coumadin. 2.5 mg today. Remove Vwires. Increase activity as tolerated. Dispo - Home without services 02/13/18 07:02 Subjective: Improving ambulatory capacity, but fairly fatigued afterwards. Adequate pain control. +BM. Objective: Vital Signs Temp Pulse Resp BP Pulse Ox 37 C 78 16 120/61 92 02/13/18 03:15 02/13/18 03:15 02/13/18 03:15 02/13/18 03:15 02/13/18 03:15 Laboratory Results 02/13/18 06:05 02/13/18 06:05 02/12/18 02/13/18 02/14/18 05:59 05:59 05:59 Intake Total 1150 670 Output Total 1150 1750 Balance 0 -1080 PT 20.7 SEC (12.0-15.0) H 02/13/18 06:05 INR 1.77 (0.83-1.16) H 02/13/18 06:05 Holding SR. Adequate BP control. Almost off suppl O2. Improving fluid balance. CXR-> mod rt sized pl effusion. Ongoing plt rebound. Appropriate INR fall. - Pending Discharge Pending Discharge Within 48 Hours: Yes Pending Discharge Date: 07/13/18 Pending Discharge Time: 11:00 Physical Exam - Physical Exam General Appearance: alert, no apparent distress Respiratory: decreased breath sounds (rt base with e to a changes) Cardiac/Chest: regular rate, rhythm, other (Sternotomy CDI. One (marked) Vwire clipped, the other removed without difficulty.) Abdomen: non-tender, soft Skin: warm/dry Extremities: other (no visible dependent edema) ICD10 Worksheet Patient Problems: Problems Problem Status Onset Acute blood loss anemia Acute S/P Maze operation for atrial fibrillation Acute ~02/08/18 S/P aorta repair Acute ~02/08/18 S/P mitral valve replacement with bioprosthetic valve Acute ~02/08/18 S/P ventricular septal myectomy Acute ~02/08/18 Ascending aorta enlargement Chronic Asymmetric septal hypertrophy Chronic Hypertensive cardiomyopathy Chronic PAF (paroxysmal atrial fibrillation) Chronic Severe mitral regurgitation Chronic
[2018-02-13] MEDS: ASPIRIN 81 MG CHEWABLE TAB PO SCH (08:31)
[2018-02-13] MEDS: ACETAMINOPHEN 325 MG TAB PO PRN ×2 (08:31→10:29)
[2018-02-13] MEDS: POTASSIUM CL 20 MEQ TAB PO SCH (08:31)
[2018-02-13] MEDS: LABETALOL HCL 200 MG TAB PO SCH (08:31)
[2018-02-13] MEDS: PANTOPRAZOLE SODIUM 40 MG TAB PO SCH (08:31)
[2018-02-13] MEDS: SENNOSIDES/DOCUSATE SODIUM TAB PO PRN (08:46)
[2018-02-13] MEDS: LISINOPRIL 10 MG TAB PO SCH ×2 (08:47→21:50)
[2018-02-13] MEDS ORDERED: FUROSEMIDE 40 MG/4 ML VIAL IVP SCH (09:00)
--- NOTE | 2018-02-13 09:29 | ASMTCMCOM ---
CM Note CM Note Notes: CM spoke to Dr. Ruelas regarding d/c POC. Anticipate pt will d/c on Sunday without any services. No other needs identified at this time. CM available for changes. Plan: Independent Date Signed: 02/13/2018 09:29 AM Electronically Signed By:KITA Gatica
[2018-02-13] MEDS ORDERED: LIDOCAINE 1% 300 MG/30 ML SDV ONE (10:12)
[2018-02-13] MEDS: traMADol 50 MG TAB PO PRN ×2 (13:04→13:38)
[2018-02-13] MEDS: ALPRAZolam 0.25 MG TAB PO PRN (13:38)
[2018-02-13] MEDS: ONDANSETRON 4 MG/2 ML VIAL IVP PRN (15:29)
[2018-02-13] MEDS ORDERED: WARFARIN SODIUM 2.5 MG TAB PO ONE (16:00)
[2018-02-13] MEDS: OXYCODONE/APAP 5/325 TAB PO PRN ×2 (17:09→23:18)
[2018-02-13] MEDS ORDERED: KETOROLAC 15 MG/1 ML SDV IVP ONE (17:45)
[2018-02-14] MEDS: traMADol 50 MG TAB PO PRN ×3 (01:53→18:01)
[2018-02-14 02:38] LABS: INR 1.7 (0.83-1.16); PROTIME(PATIENT) 20.1 SEC (12.0-15.0)
--- NOTE | 2018-02-14 06:21 | SOAPPROG ---
IBAN Progress Note Assessment/Plan: POD #6: Mitral valve replacement with #27 Mary Noa aortic valve, reduction aortoplasty, Cannon-Maze IV, extended septal myectomy Severe MR s/p mitral valve replacement - Coumadin with INR goal 2-3 for AC as per Cannon-Maze IV as well as adjunctive baby ASA Ascending aortic aneurysm s/p reduction aortoplasty - Stable Long-standing paroxysmal atrial fibrillation s/p Cannon-Maze IV - Post-op SR - Coumadin for AC as per protocol HOCM with JOHN s/p extended septal myectomy - BB as tolerated Acute blood loss anemia - Stable s/p 2U PRBC AUDRA, secondary to hypotension/pre-renal - Resolved Fluid overload with BL pleural effusions - Right thoracentesis 1.1 L yesterday, left today - BID IV Lasix today Disposition - Home Sunday without services Subjective: Denies pain/SOB. Objective: Vital Signs Temp Pulse Resp BP Pulse Ox 36.7 C 79 12 112/72 95 02/14/18 04:00 02/14/18 04:00 02/14/18 04:00 02/14/18 04:00 02/14/18 04:00 Laboratory Results 02/13/18 06:05 02/14/18 02:00 02/13/18 02/14/18 02/15/18 05:59 05:59 05:59 Intake Total 670 1320 Output Total 1750 2800 Balance -1080 -1480 PT 20.1 SEC (12.0-15.0) H 02/14/18 02:00 INR 1.70 (0.83-1.16) H 02/14/18 02:00 Physical Exam - Physical Exam General Appearance: WD/WN, alert, no apparent distress EENT: No scleral icterus (R), No scleral icterus (L) Neck: normal inspection Respiratory: No respiratory distress Cardiac/Chest: regular rate, rhythm Abdomen: non-tender, soft, No distended Skin: normal color, warm/dry Extremities: No pedal edema Neuro/Psych: no motor/sensory deficits, alert, normal mood/affect, oriented x 3 ICD10 Worksheet Patient Problems: Problems Problem Status Onset Acute blood loss anemia Acute S/P Maze operation for atrial fibrillation Acute ~02/08/18 S/P aorta repair Acute ~02/08/18 S/P mitral valve replacement with bioprosthetic valve Acute ~02/08/18 S/P ventricular septal myectomy Acute ~02/08/18 Ascending aorta enlargement Chronic Asymmetric septal hypertrophy Chronic Hypertensive cardiomyopathy Chronic PAF (paroxysmal atrial fibrillation) Chronic Severe mitral regurgitation Chronic
[2018-02-14] MEDS: ASPIRIN 81 MG CHEWABLE TAB PO SCH (08:26)
[2018-02-14] MEDS: FUROSEMIDE 40 MG/4 ML VIAL IVP SCH ×2 (08:26→15:48)
[2018-02-14] MEDS: PANTOPRAZOLE SODIUM 40 MG TAB PO SCH (08:26)
[2018-02-14] MEDS: POTASSIUM CL 20 MEQ TAB PO SCH ×2 (08:26→19:29)
[2018-02-14] MEDS: SENNOSIDES/DOCUSATE SODIUM TAB PO PRN (08:34)
[2018-02-14] MEDS: OXYCODONE/APAP 5/325 TAB PO PRN ×3 (13:46→23:48)
[2018-02-14] MEDS ORDERED: LIDOCAINE 1% 300 MG/30 ML SDV ONE (13:53)
[2018-02-14] MEDS ORDERED: WARFARIN SODIUM 5 MG TAB PO ONE (16:00)
[2018-02-14] MEDS ORDERED: KETOROLAC 15 MG/1 ML SDV IVP PRN (17:17)
[2018-02-14] MEDS ORDERED: METOPROLOL TARTRATE 25 MG TAB PO ONE (20:30)
[2018-02-14] MEDS ORDERED: METOPROLOL TARTRATE 25 MG TAB PO SCH (21:00)
[2018-02-14] MEDS ORDERED: LISINOPRIL 10 MG TAB PO SCH (21:00)
[2018-02-15] MEDS: OXYCODONE/APAP 5/325 TAB PO PRN ×3 (05:42→21:16)
[2018-02-15 06:12] LABS: INR 2.58 (0.83-1.16); PROTIME(PATIENT) 27.6 SEC (12.0-15.0)
--- NOTE | 2018-02-15 07:23 | SOAPPROG ---
SOAP Progress Note Assessment/Plan: Assessment: POD#7 MVR with #27 Inspiris Resilia aortic valve, extended septal myectomy, reduction aortoplasty, Cannon-Maze IV PPD#2 US guided rt thoracentesis for 1100 ml PPD#1 US guided left thoracentesis for 700 ml Severe MR s/p tissue MVR - Antithrombotic prophylaxis as per Maze. Adjunctive baby ASA until INR stable in therapeutic range. Ascending aortic aneurysm s/p reduction aortoplasty - BP control preferentially with BB. Long-standing paroxysmal atrial fibrillation s/p Cannon-Maze IV - Postop rhythm sinus. - Antithrombotic prophylaxis with Coumadin, target INR 2-3, duration as per protocol. HOCM with JOHN s/p extended septal myectomy - BB as tolerated Acute expected blood loss anemia with thrombocytopenia - Stable s/p 2U PRBC - Platelet count rebounding. Precautionary HIT negative. AUDRA, pre-renal secondary to hypotension - Resolved with liberalized BP - Avoid nephrotoxins Acute dCHF w bilateral pleural effusions - Multifactorial (fluid overload, CPB, maze and pleurotomies) - Active diuresis in progress - Therapeutic thoracenteses prn - Trial anti-inflammatory Plan: Repeat US rt chest for amenability to repeat thoracentesis. Cont BID IV lasix. Start steroids/medrol dose pack. Resume labetalol 100 mg BID. Coumadin 2.5 mg today. Cont increased activity as tolerated. Dispo - Home without services when medically stable. 02/15/18 07:20 Subjective: Feels pretty good. Improving appetite and mobility. Disappointed by xray findings. Objective: Vital Signs Temp Pulse Resp BP Pulse Ox 37 C 72 20 160/83 H 100 02/15/18 04:00 02/15/18 04:00 02/15/18 04:00 02/15/18 04:00 02/15/18 04:00 Laboratory Results 02/13/18 06:05 02/15/18 05:45 02/14/18 02/15/18 02/16/18 05:59 05:59 05:59 Intake Total 1320 350 Output Total 2800 3300 Balance -1480 -2950 PT 27.6 SEC (12.0-15.0) H 02/15/18 05:45 INR 2.58 (0.83-1.16) H 02/15/18 05:45 HR and rhythm stable. Upward trending SBPs on metop 50mg BID. Borderline suppl O2 req. Improving fluid balance. Still +7 kg. CXR -> Inc rt basilar consolidation, unclear effusion vs atelectasis. Small left pleural effusion. Therapeutic INR. Physical Exam - Physical Exam General Appearance: alert, no apparent distress Respiratory: decreased breath sounds (bases) Cardiac/Chest: regular rate, rhythm, other (Sternotomy CDI) Abdomen: non-tender, soft Skin: warm/dry Extremities: swelling (1+) ICD10 Worksheet Patient Problems: Problems Problem Status Onset Acute blood loss anemia Acute S/P Maze operation for atrial fibrillation Acute ~02/08/18 S/P aorta repair Acute ~02/08/18 S/P mitral valve replacement with bioprosthetic valve Acute ~02/08/18 S/P ventricular septal myectomy Acute ~02/08/18 Ascending aorta enlargement Chronic Asymmetric septal hypertrophy Chronic Hypertensive cardiomyopathy Chronic PAF (paroxysmal atrial fibrillation) Chronic Severe mitral regurgitation Chronic
[2018-02-15] MEDS ORDERED: METOPROLOL TARTRATE 50 MG TAB PO SCH (09:00)
[2018-02-15] MEDS ORDERED: POTASSIUM CL 20 MEQ TAB PO SCH (09:00)
[2018-02-15 09:13] LABS: INR 2.65 (0.83-1.16); PROTIME(PATIENT) 28.2 SEC (12.0-15.0)
[2018-02-15] MEDS ORDERED: LIDOCAINE 1% 300 MG/30 ML SDV ONE (09:52)
[2018-02-15] MEDS: POTASSIUM CL 20 MEQ TAB PO SCH ×2 (09:54→21:17)
[2018-02-15] MEDS: LABETALOL HCL 100 MG TAB PO SCH ×2 (09:54→21:17)
[2018-02-15] MEDS: PANTOPRAZOLE SODIUM 40 MG TAB PO SCH (09:54)
[2018-02-15] MEDS: ASPIRIN 81 MG CHEWABLE TAB PO SCH (09:54)
[2018-02-15] MEDS: FUROSEMIDE 40 MG/4 ML VIAL IVP SCH ×2 (09:55→16:14)
[2018-02-15] MEDS ORDERED: TORSEMIDE 20 MG TAB PO SCH (10:00)
--- NOTE | 2018-02-15 10:00 | ASMTCMCOM ---
CM Note CM Note Notes: The plan remains the same. Pt will d/c when medically stable without any needs. No other needs identified at this time. CM available for changes. Plan: Independent Date Signed: 02/15/2018 10:00 AM Electronically Signed By:KITA Gatica
[2018-02-15] MEDS: methylPREDNISolone 4 MG TAB PO SCH ×4 (10:11→21:17)
[2018-02-15] MEDS: traMADol 50 MG TAB PO PRN ×2 (10:12→17:35)
[2018-02-15] MEDS ORDERED: WARFARIN SODIUM 2.5 MG TAB PO ONE (16:00)
[2018-02-15] MEDS: POLYETHYLENE GLYCOL 3350 17 GM PKT PO PRN (17:34)
[2018-02-15] MEDS ORDERED: LABETALOL HCL 100 MG TAB PO ONE (21:22)
[2018-02-16] MEDS: OXYCODONE/APAP 5/325 TAB PO PRN ×2 (05:17→12:18)
[2018-02-16 05:49] LABS: INR 2.49 (0.83-1.16); PROTIME(PATIENT) 26.9 SEC (12.0-15.0)
[2018-02-16] MEDS: methylPREDNISolone 4 MG TAB PO SCH ×2 (07:35→12:21)
--- NOTE | 2018-02-16 07:55 | SOAPPROG ---
IBAN Progress Note Assessment/Plan: POD #8: Mitral valve replacement with #27 Mary Noa aortic valve, reduction aortoplasty, Cannon-Maze IV, extended septal myectomy Severe MR s/p mitral valve replacement - Coumadin with INR goal 2-3 for AC as per Cannon-Maze IV as well as adjunctive baby ASA Ascending aortic aneurysm s/p reduction aortoplasty - Stable Long-standing paroxysmal atrial fibrillation s/p Cannon-Maze IV - Post-op SR - Coumadin for AC as per protocol HOCM with JOHN s/p extended septal myectomy - BB as tolerated Acute blood loss anemia - Stable s/p 2U PRBC AUDRA, secondary to hypotension/pre-renal - Resolved Fluid overload with BL pleural effusions - Right thoracentesis x 2 with left thoracentesis x 1 - CXR this AM improved - Continue Lasix DVT prophylaxis - Coumadin/SCDs Disposition - Home today or tomorrow without services Subjective: Feels well today. Looking forward to getting home. Objective: Vital Signs Temp Pulse Resp BP Pulse Ox 36.9 C 76 16 165/98 H 97 02/16/18 04:00 02/16/18 04:00 02/16/18 04:00 02/16/18 04:00 02/16/18 04:00 Laboratory Results 02/16/18 05:20 02/16/18 05:20 02/15/18 02/16/18 02/17/18 05:59 05:59 05:59 Intake Total 350 1380 Output Total 3300 1650 Balance -2950 -270 PT 26.9 SEC (12.0-15.0) H 02/16/18 05:20 INR 2.49 (0.83-1.16) H 02/16/18 05:20 Physical Exam - Physical Exam General Appearance: WD/WN, alert, no apparent distress EENT: No scleral icterus (R), No scleral icterus (L) Neck: normal inspection Respiratory: No respiratory distress Cardiac/Chest: regular rate, rhythm Abdomen: non-tender, soft, No distended Skin: normal color, warm/dry Extremities: pedal edema Neuro/Psych: no motor/sensory deficits, alert, normal mood/affect, oriented x 3 ICD10 Worksheet Patient Problems: Problems Problem Status Onset Acute blood loss anemia Acute S/P Maze operation for atrial fibrillation Acute ~02/08/18 S/P aorta repair Acute ~02/08/18 S/P mitral valve replacement with bioprosthetic valve Acute ~02/08/18 S/P ventricular septal myectomy Acute ~02/08/18 Ascending aorta enlargement Chronic Asymmetric septal hypertrophy Chronic Hypertensive cardiomyopathy Chronic PAF (paroxysmal atrial fibrillation) Chronic Severe mitral regurgitation Chronic
[2018-02-16] MEDS ORDERED: LABETALOL HCL 200 MG TAB PO SCH (09:00)
[2018-02-16] MEDS: FUROSEMIDE 40 MG/4 ML VIAL IVP SCH ×2 (09:10→14:49)
[2018-02-16] MEDS: ASPIRIN 81 MG CHEWABLE TAB PO SCH (09:10)
[2018-02-16] MEDS: POTASSIUM CL 20 MEQ TAB PO SCH (09:10)
[2018-02-16] MEDS: PANTOPRAZOLE SODIUM 40 MG TAB PO SCH (09:10)
--- NOTE | 2018-02-16 11:07 | PDDCSUM ---
Discharge Summary Discharge Summary: ADMISSION DATE: 02/07/18 DISCHARGE DATE: 02/16/18 DISCHARGE DIAGNOSES 1. Severe mitral insufficiency 2. Ascending aortic aneurysm 3. Long standing persistent atrial fibrillation 4. Hypertrophic obstructive cardiomyopathy with JOHN 5. Acute blood loss anemia 6. Acute kidney injury 7. Bilateral pleural effusions PROCEDURES 02/04/18, Shane Ruelas: 1. Mitral valve replacement with #27 Inspiris Resilia aortic bioprosthetic valve 2. Reduction aortoplasty 3. Cannon-Maze IV 4. Extended septal myectomy HOSPITAL COURSE BY PROBLEM LIST 1. Severe mitral insufficiency s/p replacement with bioprosthesis - Coumadin with INR goal 2-3 for AC as per Cannon-Maze IV as well as adjunctive baby ASA. 2. Ascending aortic aneurysm - stable s/p reduction aortoplasty. 3. Long standing persistent atrial fibrillation - discharged in SR. Coumadin with INR goal 2-3 for AC as per Cannon-Maze IV protocol. Continue labetalol for AF prophylaxis. 4. Hypertrophic obstructive cardiomyopathy with JOHN - stable after myectomy. Continue beta-myrna. 5. Acute blood loss anemia - stable s/p 2 units of PRBCs transfused. 6. Acute kidney injury - resolution with supportive care. 7. Recurrent bilateral pleural effusions - right drained twice and left drained once. Continue steroids for possible inflammation until dose-pack complete. CXR prior to surgical follow-up. CONDITION Good DISPOSITION Home, self-care ACTIVITY Pt was instructed on sternal precautions, activity limitations, and which problems to call [facility] with. Please see Discharge Plan in chart for specifics. DISCHARGE MEDICATIONS ALPRAZolam [Xanax 0.25 MG (*)] 0.25 mg PO DAILY PRN Magnesium Oxide [Magnesium Oxide 400 mg (*)] 400 mg PO DAILY Acetaminophen [Tylenol 325mg (*)] 325 - 650 mg PO Q4HRS PRN Aspirin [Aspirin 81mg (*)] 81 mg PO DAILY Furosemide [Lasix 40 MG (*)] 40 mg PO BID Herbals/Supplements -Info Only 1 ea PO DAILY Ibuprofen 200 mg PO Q8H PRN Labetalol HCl [Trandate 200 mg (*)] 200 mg PO BID Potassium Cl [Klor-Con 20 meq (*)] 20 meq PO BID Sennosides/Docusate Sodium [Senokot-S] 2 tab PO BID PRN Warfarin Sodium [Coumadin 2.5MG (*)] 2.5 mg PO DAILY AT 4PM methylPREDNISolone [Medrol Dose Elías] 4 mg PO AD oxyCODONE/APAP 5/325 [Percocet 5/325 (*)] 1 - 2 tab PO Q4HRS PRN #40 PENDING STUDIES/LABS 1. CXR prior to surgical follow-up 2. INR Sunday as per Coumadin clinic FOLLOW-UP 1. Shane Ruelas, 02/19/18, 10:30 AM 2. Wilfred Sims
[2018-02-16 11:47] VITALS: BP 141/84
--- NOTE | 2018-02-16 12:38 | ASMTLACE ---
LACE Length of stay for Answers: 7-13 days current admission Acuity / Level of Answers: Yes Care: Did the patient have an inpatient admission? Comorbidities - select Answers: Other Notes: HTN, Afib, MVR all that apply # of Emergency department Answers: 0 visits in the last 6 months Score: 9 Date Signed: 02/16/2018 12:37 PM Electronically Signed By:MAI Whitley
--- NOTE | 2018-02-16 12:45 | ASDISCHSUM ---
Discharge Information Plan Status:Home with No Needs Medically Cleared to Leave:02/16/2018 Discharge Date:02/16/2018 CM D/C Disposition:Home, Routine, Self-Care ADT D/C Disposition:Home, Routine, Self-Care Projected Discharge Date:02/16/2018 Transportation at D/C:Family Discharge Delay Reason: Follow-Up Date:02/16/2018 Discharge Slot: Final Diagnosis: Placement Information Patient Contact Information Contact Name:IVONE Relationship: Address:[address] City:[facility] Phone: [facility]/Zip Code:[place] [address] Email: Financial Information Financial Class:HMO and PPO Plans Primary Plan Desc:HMO [place] [employer] Primary Plan Number:[id number] Secondary Plan Desc: Secondary Plan Number: Assessment Information [facility] CM Progress Note CM Note CM Note Notes: Patient is POD #0 septal myectomy, [place] 4 and MVR. She arrived to the ICU in stable condition. Patient lives independently with her . PT/OT have been ordered. Case Managementw will follow for discharge planning. Date Signed: 02/08/2018 12:58 PM Electronically Signed By:Edie Richardson RN LACE NEERAJ Length of stay for Answers: 7-13 days current admission Acuity / Level of Answers: Yes Care: Did the patient have an inpatient admission? Comorbidities - select Answers: Other Notes: HTN, Afib, MVR all that apply # of Emergency department Answers: 0 visits in the last 6 months Score: 9 Date Signed: 02/16/2018 12:37 PM Electronically Signed By:MAI Whitley [facility] CM Progress Note CM Note CM Note Notes: PT recommending HC stand by assist w/walker; OT=Hm. She has HMO [employer]. Lives with . Transferred to [facility]. Date Signed: 02/11/2018 04:13 PM Electronically Signed By:June Osman LCSW [facility] CM Progress Note CM Note CM Note Notes: CM spoke to Dr. Ruelas regarding d/c POC. Anticipate pt will d/c on Sunday without any services. No other needs identified at this time. CM available for changes. Plan: Independent Date Signed: 02/13/2018 09:29 AM Electronically Signed By:KITA Gatica [facility] CM Progress Note CM Note CM Note Notes: The plan remains the same. Pt will d/c when medically stable without any needs. No other needs identified at this time. CM available for changes. Plan: Independent Date Signed: 02/15/2018 10:00 AM Electronically Signed By:KITA Gatica Case Management Discharge Plan Note Case Management Discharge Discharge Order Complete? Answers: Yes Patient to Obtain Answers: via Family Medications Transportation Arranged Answers: Family/Friends Discharge Comments Notes: Pt is discharging home today with no CM needs following a MVR. Family is transporting. Intervention Information
[2018-02-16] MEDS ORDERED: WARFARIN SODIUM 2.5 MG TAB PO SCH (16:00)
[2018-02-16] MEDS ORDERED: WARFARIN SODIUM 2.5 MG TAB PO ONE (16:00)
[2018-02-16] MEDS ORDERED: methylPREDNISolone 4 MG TAB PO SCH (21:00)
[2018-02-17] MEDS ORDERED: methylPREDNISolone 4 MG TAB PO SCH (07:30)
[2018-02-18] MEDS ORDERED: methylPREDNISolone 4 MG TAB PO SCH (07:30)
[2018-02-19] MEDS ORDERED: methylPREDNISolone 4 MG TAB PO SCH (07:30)
[2018-02-20] MEDS ORDERED: methylPREDNISolone 4 MG TAB PO SCH (07:30)
--- NOTE | 2018-02-20 14:10 | PQFORM ---
PHYSICIAN QUERY FORM Needs Your Response This query form is being sent to you to assure this patient record is coded properly. 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 KEVON states 'Acute diastolic CHF with bilateral pleural effusions'. The patient had this pleural effusion drained bilaterally during this admission. After further study, can a diagnosis of Acute Diastolic CHF be added to the discharge summary? Thank you for clarifying, BEAR Grant HIM Coding INSTRUCTIONS FOR RESPONSE: Answer question by clicking on the "Edit Document" button. Move cursor to area below the stars. When complete, hit "Save." Click on the "Sign" button, then click "Sign" again. Type in your PIN and hit "Enter." YES THAT'S OKAY MTDD
== END 2018-02-16 15:53 | disposition home or self-care (01) | DRG 216 ==
LOC: FCATH 10:00 → F2W 11:47 → F2N 02-08 06:51 → F2W 02-11 15:57
PROVIDERS: ADMIT Thoracic Surgery (Cardiothoracic Vascular Surgery); ATTEND Thoracic Surgery (Cardiothoracic Vascular Surgery)
PROC: 4A023N7 Measurement of Cardiac Sampling and Pressure, Left Heart, Percutaneous Approach (ICD-10-PCS; 2018-02-07)
PROC: B2151ZZ Fluoroscopy of Left Heart using Low Osmolar Contrast (ICD-10-PCS; 2018-02-07)
PROC: B2111ZZ Fluoroscopy of Multiple Coronary Arteries using Low Osmolar Contrast (ICD-10-PCS; 2018-02-07)
PROC: 02RG08Z Replacement of Mitral Valve with Zooplastic Tissue, Open Approach (ICD-10-PCS; principal; 2018-02-08 07:15)
PROC: 02580ZZ Destruction of Conduction Mechanism, Open Approach (ICD-10-PCS; principal; 2018-02-08 07:15)
PROC: 02V Heart and Great Vessels, Restriction (ICD-10-PCS; principal; 2018-02-08 07:15)
PROC: 5A1221Z Performance of Cardiac Output, Continuous (ICD-10-PCS; principal; 2018-02-08 07:15)
PROC: 0W993ZZ Drainage of Right Pleural Cavity, Percutaneous Approach (ICD-10-PCS; 2018-02-13)
PROC: 0W9B3ZZ Drainage of Left Pleural Cavity, Percutaneous Approach (ICD-10-PCS; 2018-02-14)
PROC: 0W993ZZ Drainage of Right Pleural Cavity, Percutaneous Approach (ICD-10-PCS; 2018-02-15)
DX: I34.0 Nonrheumatic mitral (valve) insufficiency (principal); I71.2 Thoracic aortic aneurysm, without rupture; I50.31 Acute diastolic (congestive) heart failure; I48.1 Persistent atrial fibrillation; I42.1 Obstructive hypertrophic cardiomyopathy; D62 Acute posthemorrhagic anemia; N17.9 Acute kidney failure, unspecified; I10 Essential (primary) hypertension; G47.30 Sleep apnea, unspecified
CPT/HCPCS: 82435-PO; 82565-PO; 82947-PO; 83605-PO; 84132-PO; 84295-PO; 84520-PO; 85014-PO; 86022-90; 97116-GP; 97162-GP; 97165-GO; 97530-GO; 97530-GP; 97535-GO; C1769; J0153; J0282; J0360; J0690; J1100; J1265; J1644; J1815; J1885; J1940; J2001; J2150; J2250; J2260; J2270; J2370; J2405; J2704; J2720; J2765; J2930; J3010; J3475; J3480; J7060; P9016; P9041; Q9967

== ENCOUNTER → 2018-03-01 | Outpatient (CLI) | payer OTHER ==
[~2018-03-01] MED LIST changes: -ATROPINE SULFATE 1 MG/10 ML SYR IVP ONE; +LIDOCAINE 1% 300 MG/30 ML SDV ONE; -NS 1,000 ML IV ONE
== END ==
LOC: FIMAGING 07:49
PROVIDERS: ATTEND Thoracic Surgery (Cardiothoracic Vascular Surgery)
PROC: 0W993ZZ Drainage of Right Pleural Cavity, Percutaneous Approach (ICD-10-PCS; principal; 2018-03-01)
DX: J90 Pleural effusion, not elsewhere classified (principal)

== ENCOUNTER → 2018-03-04 | Outpatient (CLI) | payer OTHER | LOC: FLAB 09:11 → FIMAGING 09:11 → EDSTATUS 09:13 | PROVIDERS: ATTEND Thoracic Surgery (Cardiothoracic Vascular Surgery) | DX: J90 Pleural effusion, not elsewhere classified (principal) ==

== ENCOUNTER → 2018-03-08 | Outpatient (CLI) | payer OTHER | LOC: FIMAGING 08:09 | PROVIDERS: ATTEND Thoracic Surgery (Cardiothoracic Vascular Surgery) | DX: J90 Pleural effusion, not elsewhere classified (principal); J98.11 Atelectasis ==

== ENCOUNTER → 2018-03-22 | Outpatient (CLI) | payer OTHER | LOC: FIMAGING 13:52 | PROVIDERS: ATTEND Thoracic Surgery (Cardiothoracic Vascular Surgery) | DX: Z09 Encounter for follow-up examination after completed treatment for conditions other than malignant neoplasm (principal); J90 Pleural effusion, not elsewhere classified ==

== ENCOUNTER → 2018-12-11 | Outpatient (CLI) | payer OTHER | LOC: CIMAGING 11:21 | PROVIDERS: ATTEND Family Medicine | DX: M50.30 Other cervical disc degeneration, unspecified cervical region (principal); M54.2 Cervicalgia; R53.83 Other fatigue; M43.22 Fusion of spine, cervical region; Z95.2 Presence of prosthetic heart valve | CPT/HCPCS: 72040-PO ==